=== PATIENT | male | born 1955 | race Hispanic/Latino ===

== ENCOUNTER 2023-07-31 08:27 | Emergency (ER) | payer OTHER ==
--- OUTSIDE RECORDS SUMMARY | 2023-07-31 08:32 | XMS REPORT | Continuity of Care Document ---
:[address] [facility] t Address [address] [place] [address] [place] [id number] Care Team Providers Name Role Phone Susan Cardoso Primary Care Physician Reginald Galindo Attending Clinician Modesto Agrawal MD Attending Clinician Payers Payer Name Policy Type Policy Number Effective Date Expiration Date S ource Problems Condition Condition Condition Status Onset Resolution Last Treating Co mments Source Name Details Category Date Date Treatment Clinician Date Traumatic Traumatic Disease Active [facility] incomplete incomplete 05-30 He alth tear of tear of 00:00: left left 00 rotator rotator cuff cuff Subacromia Subacromia Disease Active U T l l 05-30 Health impingemen impingemen 00:00: t of left t of left 00 shoulder shoulder Rotator Rotator Disease Active [facility] cuff cuff 04-30 Health tendonitis tendonitis 00:00: , left , left 00 Paresthesi Paresthes Problem Resolve 2021-12-08 Memoria a ia d 21:31:30 l (finding) (finding) [facility] Resolved Problem 12/08/2021 [facility] Diabetes Diabetes Problem Active 2023-07-11 Memoria mellitus mellitus 14:57:58 l (disorder) (disorder) Bandar rmann Active Problem 07/11/2023 [facility] Problem Active 2023-07-11 M emoria ve Hypertensi 14:57:58 l disorder, ve Ministerio systemic disorder, arterial systemic (disorder) arterial (disorder) Active Problem 07/11/2023 [facility] Hyperlipid Problem Active 2023-07-11 Boyd caruso Hyperlipid 14:57:58 l (disorder) emvan Rudy n (disorder) Active Problem 07/11/2023 [facility] Memory Memory Problem Active 2023-07-11 [facility] impairment impairment 14:57:58 l (finding) (finding) Herm dante Active Problem 07/11/2023 [facility] Peripheral Periphera Problem Active 2023-07-11 Memoria nerve l nerve 14:57:58 l disease disease [place] (disorder) (disorder) Active Problem 07/11/2023 [facility] Simple Simple Problem Active 2023-07-11 [facility] obesity obesity 14:57:58 l (disorder) (disorder) He rmann Active Problem 07/11/2023 [facility] Allergies, Adverse Reactions, Alerts Allergy Allergy Status Severity Reaction(s) Onset Inactive Treating Comm ents Source Name Type Date Date Clinician No Known No Known Active Memori a Medicati Medicati l on on Ministerio Allergie Allergie s s Cymbalta Cymbalta Active Memori a l Ministerio Social History Social Habit Start Date Stop Date Quantity Comments Source History of tobacco Cigarette Smoker [facility] use Exposure to 2022-05-20 2022-05-30 Not sure [facility] SARS-CoV-2 (event) 00:00:00 11:01:00 Alcohol intake 2022-05-30 2022-05-30 Current drinker of [facility] 00:00:00 00:00:00 alcohol (finding) Tobacco use and 2022-04-30 2022-04-30 User of smokeless [facility] exposure 00:00:00 00:00:00 tobacco Sex [birth year] [facility] 00:00:00 00:00:00 Smoking Status Start Date Stop Date Source Tobacco smoking status [facility] Occasional tobacco smoker 2022-04-30 00:00:00 [facility] Medications Ordered Filled Start Stop Current Ordering Indication Dosage Frequency Signature Comments Components Source Medication Medication Date Date Medication? Clinician (SIG) Name Name nortriptyli Yes = 2 cap, Me moria ne 10 mg 9-27 PO, l oral 18:19: Bedtime, # Ministerio capsule 00 180 unknown unit, 1 Refill(s), Pharmacy: [id number], 167.64, cm, 12/12/22 8:54:00 CDT, Height, 90.511, kg, 12/12/22 8:54:00 CDT, Weight nortriptyli Yes 20 mg = 2 M emoria ne 10 mg 3-07 cap, PO, l oral 16:30: Bedtime, # Ministerio capsule 00 180 cap, 1 Refill(s), Pharmacy: [facility] #[id number], 167.64, cm, 08/15/22 9:00:00 [facility] [place], Height, 89.545, kg, 08/15/22 9:00:00 [facility], Weight nortriptyli 2021-08 Yes 20 mg = 2 M emoria ne 10 mg 2-16 cap, PO, l oral 15:15: Bedtime, # [place] capsule 00 60 cap, 3 Refill(s), Pharmacy: [facility] #[id number], 167.64, cm, 08/15/22 9:00:00 [facility], Height, 89.545, kg, 08/15/22 9:00:00 [facility] MA[facility], Weight lidocaine 2021- No [id number] 1mL UT (Xylocaine) 04-30 Health 1 % 16:48: 16:48 injection 1 36 :00 mL triamcinolo 2021- No [id number] 40mg U T ne 04-30 Health acetonide 16:48: 16:48 (Kenalog-40 36 :00 ) injection 40 mg triamcinolo 2021- No [id number] 40mg 40 mg, UT ne 04-30 Intra-luna Health acetonide 16:48: 16:48 cular, (Kenalog-40 36 :00 Once PRN ) injection Procedure, 40 mg Starting on Thu04/30/22 at 1148, For 1 dose lidocaine 2021- No [id number] 1mL 1 mL, UT (Xylocaine) 04-30 Injection, H ealth 1 % 16:48: 16:48 Once PRN injection 1 36 :00 Procedure, mL Starting on Thu04/30/22 at 1148, For 1 dose meloxicam 2022-0 2023- No [id number] 15mg Take 1 UT (Mobic) 15 04-30 [id number] tablet (15 Health MG tablet 00:00: 04:59 mg total) 00 :00 by mouth 1 (one) time each day if needed for moderate pain. meloxicam 2022-0 3- No [id number] 15mg Take 1 UT (Mobic) 15 04-30 [id number] tablet (15 Health MG tablet 00:00: 04:59 mg total) 00 :00 by mouth 1 (one) time each day if needed for moderate pain. glimepiride 2022-0 Yes 4mg QD Take 4 mg U T (Amaryl) 4 7-30 by mouth 1 Hea lth MG tablet 00:00: (one) time 00 each day. glimepiride 2022-0 Yes 4mg QD Take 4 mg U T (Amaryl) 4 7-30 by mouth 1 Hea lth MG tablet 00:00: (one) time 00 each day. tamsulosin 2022-0 Yes .4mg Take 0.4 UT (Flomax) 7-19 mg by Health 0.4 MG 24 00:00: mouth 1 hr capsule 00 (one) time each day in the evening. tamsulosin 2022-0 Yes .4mg Take 0.4 UT (Flomax) 7-19 mg by Health 0.4 MG 24 00:00: mouth 1 hr capsule 00 (one) time each day in the evening. nortriptyli 2022-0 Yes 10mg Take 10 mg UT ne 6-16 by mouth Health (Pamelor) 00:00: every 10 MG 00 night. capsule nortriptyli 2022-0 Yes 10mg Take 10 mg UT ne 6-16 by mouth Health (Pamelor) 00:00: every 10 MG 00 night. capsule nortriptyli 2022-0 Yes 10 mg = 1 M emoria ne 10 mg 3-18 cap, PO, l oral 21:41: Bedtime, # [place] capsule 00 90 cap, 3 Refill(s), Pharmacy: [facility] #[id number], 167.64, cm, 10/24/21 8:27:00 [place] [place], Height, 87.869, kg, 10/24/21 8:27:00 D[place] MAID, Weight nortriptyli 2021-0 Yes 10 mg = 1 M emoria ne 10 mg 2-24 cap, PO, l oral 15:04: Bedtime, # Ministerio capsule 00 30 cap, 2 Refill(s), Pharmacy: [facility] #[id number], 167.64, cm, 10/24/21 8:27:00 [facility] MA[place], Height, 87.869, kg, 10/24/21 8:27:00 [place] [place], Weight duloxetine 0 No 30 mg = 1 Me moria 30 MG 2-08 cap, PO, l Enteric 15:56: Daily, # Rudy n Coated 00 30 cap, 3 Capsule Refill(s), [Cymbalta] Pharmacy: [facility] #[id number], 167.64, cm, 10/03/21 13:09:00 [place] [place], Height, 89.205, kg, 10/03/21 13:09:00 [facility] [place], Weight gabapentin 0 Yes 300 mg = 1 M emoria 300 MG Oral 2-03 cap, PO, l Capsule 19:30: Bedtime, # Herm dante 00 30 cap, 3 Refill(s), Pharmacy: [facility] #[id number], 167.64, cm, 10/03/21 13:09:00 [place] [place], Height, 89.205, kg, 10/03/21 13:09:00 [place] [place], Weight tamsulosin 0 Yes 0.4 mg = 1 M emoria 0.4 mg oral 2-03 cap, PO, l capsule 19:29: Daily, # Rudy n 00 30 cap, 0 Refill(s) ramipril 2020-08 Yes 10mg Q.5D Take 10 mg UT (Altace) 10 09-08 by mouth Heal th MG capsule 00:00: in the 00 morning and 10 mg before bedtime. ramipril 2020-08 Yes 10mg Q.5D Take 10 mg UT (Altace) 10 09-08 by mouth Heal th MG capsule 00:00: in the 00 morning and 10 mg before bedtime. glimepiride Yes 2 mg = 0.5 Memoria 4 mg oral 8-16 tab, PO, l tablet 19:17: Daily, 0 [place] 00 Refill(s) ramipril 10 Yes 10 mg = 1 M emoria mg oral 8-16 cap, PO, l capsule 19:17: Daily, # Rudy n 00 30 cap, 0 Refill(s) aspirin 81 Yes 81 mg = 1 Me moria mg tablet, 8-16 tab, PO, l enteric 19:17: Daily, # Rudy n coated 00 90 tab, 3 Refill(s) Vital Signs Vital Name Observation Time Observation Value Comments Source Body height 2022-05-30 16:52:00 167.6 cm [facility] Height 2023-07-08 14:32:00 5 [ft_i] [facility] Weight 2023-07-08 14:32:00 [facility] BMI Calculated 2023-07-08 14:32:00 Memori al [place] Systolic (mm Hg) 2023-07-08 14:32:00 Herminio rial [place] Diastolic (mm Hg) 2023-07-08 14:32:00 Mem orial Ministerio Heart Rate 2023-07-08 14:32:00 [facility] [place] Systolic (mm Hg) 2022-12-12 13:51:00 Herminio rial [place] Diastolic (mm Hg) 2022-12-12 13:51:00 Mem orial [place] Heart Rate 2022-12-12 13:51:00 [facility] Height 2022-12-12 13:51:00 5 [ft_i] [facility] Weight 2022-12-12 13:51:00 [facility] Ministerio BMI Calculated 2022-12-12 13:51:00 Memori al [place] Systolic (mm Hg) 2022-08-15 14:53:00 Herminio rial Ministerio Diastolic (mm Hg) 2022-08-15 14:53:00 Mem orial [place] Heart Rate 2022-08-15 14:53:00 [facility] Height 2022-08-15 14:53:00 5 [ft_i] [facility] Weight 2022-08-15 14:53:00 [facility] BMI Calculated 2022-08-15 14:53:00 Memori al Ministerio Systolic (mm Hg) 2021-10-24 14:12:00 Herminio rial [place] Diastolic (mm Hg) 2021-10-24 14:12:00 Mem orial Ministerio Heart Rate 2021-10-24 14:12:00 [facility] [place] Respitory Rate 2021-10-24 14:12:00 Memori al [place] Height 2021-10-24 14:12:00 167.64 cm Memorial [place] Weight 2021-10-24 14:12:00 Memorial Ministerio BMI Calculated 2021-10-24 14:12:00 Memori al Ministerio Systolic (mm Hg) 2021-10-03 19:09:00 Herminio rial [place] Diastolic (mm Hg) 2021-10-03 19:09:00 Mem orial Ministerio Heart Rate 2021-10-03 19:09:00 [facility] [place] Respitory Rate 2021-10-03 19:09:00 Memori al Ministerio Height 2021-10-03 19:09:00 167.64 cm Memorial [place] Weight 2021-10-03 19:09:00 Memorial Ministerio BMI Calculated 2021-10-03 19:09:00 Memori al Ministerio Systolic (mm Hg) 2018-10-08 14:49:00 Herminio rial Ministerio Diastolic (mm Hg) 2018-10-08 14:49:00 Mem orial Ministerio Heart Rate 2018-10-08 14:49:00 Memorial Ministerio Respitory Rate 2018-10-08 14:49:00 Memori al [place] Height 2018-10-08 14:49:00 172.72 cm Memorial Ministerio Weight 2018-10-08 14:49:00 [facility] [place] BMI Calculated 2018-10-08 14:49:00 Memori al [place] Height 2018-08-26 21:07:00 170.18 cm [facility] [place] Weight 2018-08-26 21:07:00 Memorial Ministerio BMI Calculated 2018-08-26 21:07:00 Memori al Ministerio Systolic (mm Hg) 2018-08-26 21:07:00 Herminio rial Ministerio Diastolic (mm Hg) 2018-08-26 21:07:00 Mem orial Ministerio Heart Rate 2018-08-26 21:07:00 [facility] Ministerio Procedures Procedure Date / Time Performed Performing Clinician Sourc e NH ARTHROCENTESIS ASP/INJ MAJOR 2022-04-30 16:48:36 Rossi Mccray julissa [facility] JOINT/BURSA W/OUT US Encounters Start End Encounter Admission Attending Care Care Encounter Source Date/Time Date/Time Type Type Clinicians Facility Department ID 2024-02-17 2024-02-17 Outpatient MHIE MHIE [id number] Memoria 09:00:00 09:00:00 11 deven Mandel 2023-07-08 2023-07-09 Outpatient MHIE MNA [id number] Memoria 15:00:00 05:59:59 Neurology 10 deven Mandel 2023-07-08 2023-07-08 Outpatient CHAIM GalindoMISCHER MHMISCHER [id number] 09:00:00 23:59:59 Reginald 10 Brannon 2023-07-08 2023-07-08 Outpatient MHIE MHIE [id number] Memoria 09:00:00 09:00:00 10 deven Mandel 2022-12-12 2022-12-13 Outpatient MHIE MNA [id number] Memoria 14:00:00 04:59:59 Neurology 09 deven Mandel 2022-12-12 2022-12-12 Outpatient CHAIM GalindoMISCHER MHMISCHER [id number] 09:00:00 23:59:59 Reginald 09 Brannon 2022-12-12 2022-12-12 Outpatient MHIE MHIE [id number] Memoria 09:00:00 09:00:00 09 deven Mandel 2022-08-15 2022-08-16 Outpatient MHIE MNA [id number] Memoria 15:00:00 05:59:59 Neurology 08 deven Mandel 2022-08-15 2022-08-15 Outpatient CHAIM GalindoMISCHER MHMISCHER [id number] 09:00:00 23:59:59 Reginald 08 Brannon 2022-08-15 2022-08-15 Outpatient MHIE MHIE [id number] Memoria 09:00:00 09:00:00 08 deven Mandel 2022-05-30 2022-05-30 Office SURYA Agrawal [id number] [place] 11:30:00 14:25:31 Visit [place] HENRY [id number] He alth [place] [id number] 2022-04-30 2022-04-30 Outpatient [facility] [id number] [place] 00:00:00 11:55:46 Health 2022-04-30 2022-04-30 Office SURYA Agrawal [id number] [place] 10:45:00 11:55:21 Visit [place] SUGAR [id number] He alth [place] [id number] 2021-12-06 2021-12-06 Ambulatory nullFlavo MNA [id number] Memoria 14:00:00 14:00:00 Pre-Reg r Neurology 07 l Mirtha Mandel 2021-12-06 2021-12-06 Outpatient MHIE MHEVENS [id number] Memoria 09:00:00 09:00:00 07 deven Ministerio 2021-12-06 2021-12-06 Outpatient KIKO GalindoMISCHER [id number] 09:00:00 09:00:00 Reginald 07 Brannon 2021-10-24 2021-10-25 Outpatient nullFlavo MNA [id number] Memoria 14:15:00 05:59:59 r Neurology 06 deven Mirtha Mandel 2021-10-24 2021-10-24 Outpatient KIKO GalindoSCHKILO [id number] 08:15:00 23:59:59 Reginald 06 Brannon 2021-10-24 2021-10-24 Outpatient MHIE CHAIMIE [id number] Memoria 08:15:00 08:15:00 06 deven Mandel 2021-10-03 2021-10-04 Outpatient nullFlavo MNA [id number] Memoria 19:00:00 05:59:59 r Neurology 05 deven Mandel 2021-10-03 2021-10-03 Outpatient KIKO Galindo MHMISCHER [id number] 13:00:00 23:59:59 Reginald 05 Brannon 2021-10-03 2021-10-03 Outpatient MHIE MHIE [id number] Memoria 13:00:00 13:00:00 05 deven Mandel 2019-07-08 2019-07-08 Ambulatory nullFlavo MNA [id number] Memoria 15:15:00 15:15:00 Pre-Reg r Neurology 04 deven Mandel 2019-07-08 2019-07-08 Outpatient MHIE MHIE [id number] Memoria 09:15:00 09:15:00 04 deven Mandel 2019-07-08 2019-07-08 Outpatient STUART GalindoSCHER MHMISCHER [id number] 09:15:00 09:15:00 Reginald 04 Brannon 2018-10-08 2018-10-09 Outpatient nullFlavo MNA [id number] Memoria 15:00:00 05:59:59 r Neurology 03 deven Mandel 2018-10-08 2018-10-08 Outpatient CHAIM GalindoMISCHER MHMISCHER [id number] 09:00:00 23:59:59 Reginald 03 Brannon 2018-10-08 2018-10-08 Outpatient MHIE MHIE [id number] Memoria 09:00:00 09:00:00 03 deven Ministerio 2018-08-26 2018-08-27 Outpatient nullFlavo MNA [id number] Memoria 21:00:00 05:59:59 r Neurology 02 deven [place] Ministerio 2018-08-26 2018-08-26 Outpatient STUART GalindoSCHER MHMISCHER [id number] 15:00:00 23:59:59 Reginald 02 Brannon 2018-08-26 2018-08-26 Outpatient MHIE MHIE [id number] Memoria 15:00:00 15:00:00 02 deven Mandel 2018-05-27 2018-05-27 Outpatient MHIE MHIE [id number] Memoria 15:00:00 15:00:00 01 deven Mandel 2018-04-15 2018-04-15 Outpatient MHIE MHIE [id number] Memoria 15:00:00 15:00:00 00 deven Mandel Results This patient has no known results.
--- NOTE | 2023-07-31 09:19 | RAD REPORT ---
EXAM DESCRIPTION: CT - Head Brain Wo Cont - 07/31/2023 9:08 am CLINICAL HISTORY: HTN, dizziness, headache COMPARISON: No comparisons TECHNIQUE: All CT scans are performed using dose optimization technique as appropriate and may inclu de automated exposure control or mA/KV adjustment according to patient size. FINDINGS: No intracranial hemorrhage, hydrocephalus or extra-axial fluid collection.No areas of brai n edema or evidence of midline shift. The paranasal sinuses and mastoids are clear. The calvarium is intact. IMPRESSION: No acute intracranial abnormality.
[2023-07-31 09:34] LABS: Hematocrit 45.4 % (39.6-49.0); MCV 87.7 fL (80-100); MPV 8.1 fL (7.6-11.3); Platelets 217 thou/uL (152-406); RBC Red Blood Cell Count 5.18 M/uL (4.33-5.43)
--- NOTE | 2023-07-31 09:35 | RAD REPORT ---
EXAM DESCRIPTION: RAD - Chest Single View - 07/31/2023 9:24 am CLINICAL HISTORY: HTN, dizzy COMPARISON: No comparisons FINDINGS: Lines: None. Lungs: No evidence of edema or pneumonia. Pleural: No significant pleural effusions or pneumothorax. Cardiac: The heart size is within normal limits. Mediastinum: Within normal limits. Bones: No acute fractures. Other: None IMPRESSION: No acute cardiopulmonary disease.
[2023-07-31 10:32] LABS: Albumin 3.6 g/dL (3.4-5.0); Bilirubin Direct 0.1 mg/dL (0-0.2); Bilirubin Indirect, Calculated 0.3 mg/dL (0.2-0.8); Bilirubin Total 0.4 mg/dL (0.2-1.0); Protein, Total 7.4 g/dL (6.4-8.2); Troponin High Sensitivity 7.4 pg/mL (<58.9)
--- NOTE | 2023-07-31 10:37 | ER ---
Nurse's Notes [facility] Name: Bradley Jc Age: 67 yrs Sex: Male : 1955 Arrival Date: 07/31/2023 Time: 08:27 Bed 4 Private MD: Diagnosis: Essential (primary) hypertension Presentation: 07/31 08:41 Chief complaint: Patient states: High blood pressure, hx of HTN. DAS and dizziness jl7 yesterday, now resolved. Coronavirus screen: At this time, the client does not indicate any symptoms associated with coronavirus-19. Ebola Screen: No symptoms or risks identified at this time. Initial Sepsis Screen: Does the patient meet any 2 criteria? No. Patient's initial sepsis screen is negative. Does the patient have a suspected source of infection? No. Patient's initial sepsis screen is negative. Risk Assessment: Do you want to hurt yourself or someone else? Patient reports no desire to harm self or others. 08:41 Method Of Arrival: Ambulatory jl7 08:41 Acuity: CATALINO 3 jl7 09:50 Onset of symptoms was July 31, 2023. ph Triage Assessment: 08:45 General: Appears in no apparent distress. uncomfortable, Behavior is calm, cooperative, jl7 appropriate for age. Pain: Denies pain. Historical: - Allergies: 08:45 No Known Allergies; jl7 - Home Meds: 08:45 ramipril Oral [Active]; Glimepiride Oral [Active]; Nortriptyline Oral for diabetic jl7 peripheral neuropathy [Active]; - PMHx: 08:45 Hypertensive disorder; Diabetes mellitus; Neuropathy; jl7 - Immunization history:: Adult Immunizations up to date. - Social history:: Smoking status: Patient denies any tobacco usage or history of. - Family history:: not pertinent. - Hospitalizations: : No recent hospitalization is reported. Screenin:49 [facility] ED Fall Risk Assessment (Adult) History of falling in the last 3 months, ph including since admission No falls in past 3 months (0 pts) Confusion or Disorientation No (0 pts) Intoxicated or Sedated No (0 pts) Impaired Gait No (0 pts) Mobility Assist Device Used No (0 pt) Altered Elimination No (0 pt) Score/Fall Risk Level 0 - 2 = Low Risk Oriented to surroundings, Maintained a safe environment, Provided non-skid footwear, Hourly rounding (assess needs \T\ fall precautionary measures) done. Abuse screen: Denies threats or abuse. Denies injuries from another. Nutritional screening: No deficits noted. Tuberculosis screening: No symptoms or risk factors identified. Assessment: 09:51 General: Appears in no apparent distress. Behavior is calm, cooperative. Pain: Denies ph pain. Neuro: Level of Consciousness is awake, alert, obeys commands, Oriented to person, place, time, situation. Cardiovascular: Denies chest pain, Capillary refill < 3 seconds in bilateral fingers Patient's skin is warm and dry. Respiratory: Airway is patent Respiratory effort is even, unlabored. Derm: Skin is pink, warm \T\ dry. Musculoskeletal: Circulation, motion, and sensation intact. Range of motion: intact in all extremities. 10:48 Reassessment: Patient appears in no apparent distress at this time. Patient and/or iw family updated on plan of care and expected duration. Pain level reassessed. Patient is alert, oriented x 3, equal unlabored respirations, skin warm/dry/pink. Patient states feeling better. Patient states symptoms have improved. Vital Signs: 08:41 BP 162 / 103; Pulse 93; Resp 17; Pulse Ox 99% ; Weight 90.72 kg; Height 5 ft. 6 in. ; jl7 Pain 0/10; 09:49 BP 142 / 81; Pulse 81; Resp 18; Pulse Ox 99% on R/A; ph 10:48 BP 140 / 94; Pulse 60; Resp 16; Pulse Ox 98% on R/A; iw 08:41 Body Mass Index 32.28 (90.72 kg, 167.64 cm) jl7 08:41 Pain Scale: Adult jl7 ED Course: 08:31 Patient arrived in ED. mr 08:31 Hugh Holbrook MD is Attending Physician. rn 08:45 Triage completed. jl7 08:45 Arm band placed on right wrist. jl7 09:10 CT Head Brain wo Cont In Process Unspecified. EDMS 09:25 XRAY Chest (1 view) In Process Unspecified. EDMS 09:49 Patient has correct armband on for positive identification. Bed in low position. Call ph light in reach. Side rails up X 1. classroom monitor on. Pulse ox on. NIBP on. 10:22 Amber Ken, RN is Primary Nurse. iw 10:48 No provider procedures requiring assistance completed. IV discontinued, intact, iw bleeding controlled, No redness/swelling at site. Pressure dressing applied. 10:49 Provided Education on: . iw Administered Medications: No medications were administered Medication: 09:49 VIS not applicable for this client. ph Outcome: 10:37 Discharge ordered by . rn 10:48 Discharged to home ambulatory, with family, iw 10:48 Condition: good 10:48 Discharge instructions given to patient, family, Instructed on discharge instructions, follow up and referral plans. Demonstrated understanding of instructions, follow-up care, 10:49 Patient left the ED. iw Signatures: Dispatcher [employer] EDMS Carol Simmons, Reg Reg mr Amber Ken, RN RN iw Hugh Holbrook MD MD rn Hall, Patricia, RN RN Wilton Valencia RN RN jl7
--- NOTE | 2023-07-31 10:37 | EDPHYS ---
Physician Documentation [facility] Name: Bradley Jc Age: 67 yrs Sex: Male : 1955 Arrival Date: 07/31/2023 Time: 08:27 Bed 4 Private MD: ED Physician Hugh Holbrook HPI: 07/31 08:52 This 67 yrs old Male presents to ER via Ambulatory with complaints of High rn Blood Pressure. 08:52 The patient has elevated blood pressure and discovered this at home. Onset: The rn symptoms/episode began/occurred at an unknown time. Severity of symptoms: At its worst the blood pressure was moderate, in the emergency department the blood pressure is unchanged. The patient has experienced similar episodes in the past. Patient reports high blood pressure, unknown onset, takes medication, has been prescribed to take twice daily but has only been taking once daily for a prolonged period of time. Has noticed blood pressure has been 180s systolic and 100 diastolic. Reports had headache and dizziness yesterday but headache and dizziness have resolved since then. No focal neurological deficit. No chest pain or shortness of breath. Does not take any other medication. Took his blood pressure medication today at 5 in the morning. This will be the first day he takes it twice daily. Currently denies any dizziness or headache. States feels fine. No difficulty walking. No vision changes. No speech problems.. Historical: - Allergies: 08:45 No Known Allergies; jl7 - Home Meds: 08:45 ramipril Oral [Active]; Glimepiride Oral [Active]; Nortriptyline Oral for diabetic jl7 peripheral neuropathy [Active]; - PMHx: 08:45 Hypertensive disorder; Diabetes mellitus; Neuropathy; jl7 - Immunization history:: Adult Immunizations up to date. - Social history:: Smoking status: Patient denies any tobacco usage or history of. - Family history:: not pertinent. - Hospitalizations: : No recent hospitalization is reported. ROS: 08:52 Constitutional: Negative for fever, chills, and weight loss, Eyes: Negative for injury, rn pain, redness, and discharge, Neck: Negative for injury, pain, and swelling, Cardiovascular: Negative for chest pain, palpitations, and edema, Respiratory: Negative for shortness of breath, cough, wheezing, and pleuritic chest pain, Abdomen/GI: Negative for abdominal pain, nausea, vomiting, diarrhea, and constipation, Back: Negative for injury and pain, MS/Extremity: Negative for injury and deformity, Skin: Negative for injury, rash, and discoloration, Neuro: Negative for headache, weakness, numbness, tingling, and seizure, Exam: 08:52 Constitutional: This is a well developed, well nourished patient who is awake, alert, rn and in no acute distress. Ambulatory to room without difficulty or requiring assistance Head/Face: Normocephalic, atraumatic. Eyes: Pupils equal round and reactive to light, extra-ocular motions intact. Neck: No neck stiffness or meningismus Cardiovascular: Regular rate and rhythm. No pulse deficits. No murmur. Respiratory: Clear bilateral breath sounds. No increased work of breathing, no retractions or nasal flaring. Abdomen/GI: Soft, non-tender Skin: Warm, dry MS/ Extremity: Pulses equal, no cyanosis. Neurovascular intact. Full, normal range of motion. Equal circumference. Neuro: Awake and alert, GCS 15, oriented to person, place, time, and situation. Cranial nerves II-XII grossly intact. Motor strength 5/5 in all extremities. Sensory grossly intact. Cerebellar exam normal. Normal gait. 10:35 ECG was reviewed by the Attending Physician. rn Vital Signs: 08:41 BP 162 / 103; Pulse 93; Resp 17; Pulse Ox 99% ; Weight 90.72 kg; Height 5 ft. 6 in. ; jl7 Pain 0/10; 09:49 BP 142 / 81; Pulse 81; Resp 18; Pulse Ox 99% on R/A; ph 10:48 BP 140 / 94; Pulse 60; Resp 16; Pulse Ox 98% on R/A; iw 08:41 Body Mass Index 32.28 (90.72 kg, 167.64 cm) jl7 08:41 Pain Scale: Adult jl7 MDM: 08:31 Patient medically screened. rn 10:35 Differential diagnosis: hypertensive crisis, Malignant HTN, intracerebral hemorrhage, rn Asymptomatic hypertension, medication noncompliance. Data reviewed: vital signs, nurses notes, lab test result(s), EKG, radiologic studies, CT scan, plain films, and as a result, I will discharge patient. Independent interpretation of the following test(s) in the Emergency Department EKG: See my EKG interpretation above X-Ray: My interpretation is Chest x-ray images negative for cardiomegaly or pneumothorax per my interpretation. Care significantly affected by the following chronic conditions: Diabetes, Hypertension. Counseling: I had a detailed discussion with the patient and/or guardian regarding the historical points, exam findings, and any diagnostic results supporting the discharge/admit diagnosis, lab results, radiology results, the need for outpatient follow up, to return to the emergency department if symptoms worsen or persist or if there are any questions or concerns that arise at home. Special discussion: I discussed with the patient/guardian in detail that at this point there is no indication for admission to the hospital. It is understood, however, that if the symptoms persist or worsen the patient needs to return immediately for re-evaluation. Based on the history and exam findings, there is no indication for further emergent testing or inpatient evaluation. I discussed with the patient/guardian the need to see the vehicle window tinter for further evaluation of the symptoms. I discussed with the patient/guardian the need to see the primary care provider for further evaluation of the symptoms. ED course: No acute findings to indicate hypertensive emergency or damage. CT head negative. EKG without ischemia. Patient asymptomatic and blood pressure improved to 142/81 without intervention. Recommend taking medication as prescribed, taking a blood pressure diary and taking to PCP for further recommendations. I have personally reviewed all of the results, including but not limited to blood tests and imaging deemed necessary to safely discharge this patient at this time. All results given to and printed out for patient. I personally went over all the results with the patient and answered all questions. Patient will follow-up with PCP and or specialist as discussed. Return precautions given and understood.. 07/31 08:52 Order name: Basic Metabolic Panel; Complete Time: 10:33 rn 07/31 08:52 Order name: CBC with Diff; Complete Time: 10: rn 07/31 08:52 Order name: LFT's; Complete Time: 10:33 rn 07/31 08:52 Order name: NT PRO-BNP; Complete Time: 10:33 rn 07/31 08:52 Order name: Troponin HS; Complete Time: 10:33 rn 07/31 08:52 Order name: CT Head Brain wo Cont; Complete Time: 09:35 rn 07/31 08:52 Order name: XRAY Chest (1 view); Complete Time: 09:35 rn 07/31 08:52 Order name: EKG; Complete Time: 08:52 rn 07/31 08:52 Order name: Cardiac monitoring; Complete Time: 09:28 rn 07/31 08:52 Order name: EKG - Nurse/Tech; Complete Time: 09:28 rn 07/31 08:52 Order name: IV Saline Lock; Complete Time: 09:45 rn 07/31 08:52 Order name: Labs collected and sent; Complete Time: :45 rn 07/31 08:52 Order name: O2 Per Protocol; Complete Time: :58 rn 07/31 08:52 Order name: O2 Sat Monitoring; Complete Time: :58 rn EC:35 Rate is 81 beats/min. Rhythm is regular. QRS [place] is Normal. LA interval is normal. QRS rn interval is normal. QT interval is normal. No Q waves. T waves are Normal. No ST changes noted. Clinical impression: NSR w/ Non-specific ST/T Changes. Interpreted by me. Reviewed by me. Administered Medications: No medications were administered Disposition Summary: 07/31/23 10:37 Discharge Ordered Notes: Location: Home rn Problem: an ongoing problem rn Symptoms: have improved rn Condition: Stable rn Diagnosis - Essential (primary) hypertension rn Followup: rn - With: Private Physician - When: As needed - Reason: Recheck today's complaints, Re-evaluation by your physician Discharge Instructions: - Discharge Summary Sheet rn - Hypertension, Adult rn - Heart Disease intelligence intern - How to Take Your Blood Pressure, [id number] rn - Managing Your Hypertension rn Forms: - Medication Reconciliation Form rn - Thank You Letter rn - Antibiotic brass burnisher - Prescription Opioid Use rn - Patient Portal Instructions rn - Leadership Thank You Letter rn Signatures: Dispatcher [employer] Hugh Botello MD MD rn Leal, Jahala RN RN jl7
[2023-07-31 10:56] VITALS: BP 140/94; O2SAT 98
--- NOTE | 2023-08-04 13:45 | EKG ---
Test Date: 2023-07-31 Test Time: 09:24:26 Program Strategist: IAN MEASUREMENT RESULTS: Intervals: Rate: 81 WY: 150 QRSD: 156 QT: 412 QTc: 478 [place]: P: 49 W[place]: 150 QRS: 16 T: 21 INTERPRETIVE STATEMENTS: Normal sinus rhythm Right bundle branch block Abnormal ECG No previous ECG available for comparison Electronically Signed On 08-04-23 13:32:02 CAREER CONSULTANT by Chema Mackay
== END 2023-07-31 10:49 | disposition home or self-care (01) ==
LOC: ER 08:27
DX: I10 Essential (primary) hypertension (principal); E11.9 Type 2 diabetes mellitus without complications
CPT/HCPCS: 36415; 70450; 71045; 80048; 80076; 83880; 84484; 85025; 93005; 99284

== ENCOUNTER 2024-04-22 10:41 | Emergency (ER) | payer OTHER ==
[2024-04-22] MEDS ORDERED: NA CHLORIDE 0.9% 1,000 ML ONE (11:22)
[2024-04-22 11:42] LABS: Absolute Eosinophils 0.1 K/uL (0-0.5); Absolute Lymphocytes (CBC) 0.9 K/uL (0.7-4.9); Absolute Monocytes 0.2 K/uL (0.1-1.3); Absolute Neutrophil 3.3 K/uL (1.8-8.0); Basophils % 1.1 % (0-1.3); Eosinophils % 1.8 % (0-4.4); Hematocrit 44.1 % (39.6-49.0); Hemoglobin 14.6 g/dL (13.6-17.9); Lymphocytes % 19.8 % (15.3-44.8); MCH 29.7 pg (27.0-35.0); MCV 89.8 fL (80-100); MPV 8.9 fL (7.6-11.3); Monocytes % 4.8 % (3.3-12.3); Neutrophils % 72.5 % (41.7-73.7); Platelets 210 thou/uL (152-406); RBC Red Blood Cell Count 4.91 M/uL (4.33-5.43); Red Cell Distribution Width 14.9 % (12.1-15.2)
[2024-04-22 12:00] LABS: ALT/SGPT 31 U/L (16-61); AST/SGOT 12 U/L (15-37); Albumin 3.7 g/dL (3.4-5.0); Alkaline Phosphatase 69 U/L (45-117); Anion Gap 4.7 mEq/L (5.0-15.0); BUN Blood Urea Nitrogen 10 mg/dL (7-18); Bicarbonate 32 mEq/L (21-32); Bilirubin Total 0.5 mg/dL (0.2-1.0); Globulin 3.7 g/dL (2.3-3.5); Glomerular Filtration Rate 93 ml/min (=/>90); Glucose Level 99 mg/dL (74-106); Magnesium 2.1 mg/dL (1.6-2.4); Potassium 3.7 mEq/L (3.5-5.1); Protein, Total 7.4 g/dL (6.4-8.2); Sodium Level 139 mEq/L (136-145)
[2024-04-22 12:01] LABS: Bilirubin Direct < 0.2 mg/dL (0-0.2); Bilirubin Indirect, Calculated 0.3 mg/dL (0.2-0.8)
--- NOTE | 2024-04-22 13:01 | EDPHYS ---
Physician Documentation [facility] Name: Bradley Jc Age: 68 yrs Sex: Male : 1955 Arrival Date: 04/22/2024 Time: 10:41 Bed 14 Private MD: ED Physician Jeffrey Yuan HPI: 04/22 11:24 This 68 yrs old Male presents to ER via Unassigned with complaints of rt Dizziness. 11:24 Patient presents to the ED with dizziness starting today. Was worse when he stood up. rt Described as lightheadedness. Patient states that the symptoms have resolved upon arrival to the ED, denies any ongoing dizziness. Denies chest pain, shortness of breath. states that the patient has had increased urination over the night. Denies other acute complaints at this time, symptoms are moderate severity, no other aggravating alleviating factors.. Historical: - Allergies: 11:31 No Known Allergies; rs5 - PMHx: 11:31 diabetes mellitus; Hypertensive disorder; neuropathy; rs5 - PSHx: 11:31 None; rs5 - Immunization history:: Adult Immunizations up to date. - Infectious Disease History:: Denies. - Family history:: not pertinent. - Social history:: Smoking status: Patient denies any tobacco usage or history of. ROS: 11:24 Constitutional: Negative for fever, chills, and weight loss, Cardiovascular: Negative rt for chest pain, palpitations, and edema, Respiratory: Negative for shortness of breath, cough, wheezing, and pleuritic chest pain, Abdomen/GI: Negative for abdominal pain, nausea, vomiting, diarrhea, and constipation, MS/Extremity: Negative for injury and deformity, Skin: Negative for injury, rash, and discoloration, 11:24 Neuro: Positive for dizziness, Exam: 11:24 Constitutional: This is a well developed, well nourished patient who is awake, alert, rt and in no acute distress. Head/Face: Normocephalic, atraumatic. Chest/axilla: Normal chest wall appearance and motion. Nontender with no deformity. No lesions are appreciated. Cardiovascular: Regular rate and rhythm with a normal S1 and S2. No gallops, murmurs, or rubs. Normal PMI, no JVD. No pulse deficits. Respiratory: Lungs have equal breath sounds bilaterally, clear to auscultation and percussion. No rales, rhonchi or wheezes noted. No increased work of breathing, no retractions or nasal flaring. Abdomen/GI: Soft, non-tender, with normal bowel sounds. No distension or tympany. No guarding or rebound. No evidence of tenderness throughout. Skin: Warm, dry with normal turgor. Normal color with no rashes, no lesions, and no evidence of cellulitis. MS/ Extremity: Pulses equal, no cyanosis. Neurovascular intact. Full, normal range of motion. Neuro: Awake and alert, GCS 15, oriented to person, place, time, and situation. Cranial nerves II-XII grossly intact. Motor strength 5/5 in all extremities. Sensory grossly intact. Cerebellar exam normal. Normal gait. 11:24 ECG was reviewed by the Attending Physician. Vital Signs: 11:00 BP 141 / 74; Pulse 77; Resp 17; Temp 97.8(O); Pulse Ox 98% ; rs5 11:09 BP 130 / 80; Pulse 74; Resp 17; Pulse Ox 98% on R/A; rs5 13:00 BP 135 / 77; Pulse 70; Resp 17; Pulse Ox 98% on R/A; rs5 MDM: 11:03 Patient medically screened. rt 14:58 Differential diagnosis: Near syncope, dehydration, dysrhythmia, electro disturbance, rt anemia. Data reviewed: vital signs, nurses notes, lab test result(s), EKG. Consideration of Admission/Observation Escalation of care including admission/observation considered. I considered the following discharge prescriptions or medication management in the emergency department Medications were administered in the Emergency Department. See MAR. Test considered but Not performed: CT: Denies headache, no head trauma, low suspicion for CVA, intracranial hemorrhage, CT scan of the head is not indicated.. Care significantly affected by the following chronic conditions: Diabetes. Response to treatment: the patient's symptoms have markedly improved after treatment. 04/22 11:12 Order name: Basic Metabolic Panel; Complete Time: 12:02 rt 04/22 11:12 Order name: CBC with Diff; Complete Time: 12:02 rt 04/22 11:12 Order name: LFT's; Complete Time: 12:02 rt 04/22 11:12 Order name: Magnesium; Complete Time: 12: rt 04/22 11:12 Order name: Troponin HS; Complete Time: 12:02 rt 04/22 11:12 Order name: Cardiac monitoring; Complete Time: rt 04/22 11:12 Order name: EKG - Nurse/Tech; Complete Time: rt 04/22 11:12 Order name: IV Saline Lock; Complete Time: rt 04/22 11:12 Order name: Labs collected and sent; Complete Time: rt 04/22 11:12 Order name: O2 Per Protocol; Complete Time: rt 04/22 11:12 Order name: O2 Sat Monitoring; Complete Time: rt EC:24 Rate is 54 beats/min. Rhythm is regular, Sinus bradycardia with Right bundle branch rt block. QRS [place] is Normal. [place] interval is normal. QRS interval is normal. QT interval is normal. No Q waves. No ST changes noted. Administered Medications: Drug: NS 0.9% IV 1000 ml IV at 1 bolus Per protocol; 1000 mL bolus Route: IV; Rate: 1 rs5 bolus; Site: right antecubital; : Follow up: IV Status: Completed infusion rs5 Disposition Summary: 04/22/24 13:00 Discharge Ordered Notes: Location: Home rt Problem: new rt Symptoms: are resolved rt Condition: Stable rt Diagnosis - Syncope Near rt Followup: rt - With: Private Physician - When: 2 - 3 days - Reason: Discharge Instructions: - Discharge Summary Sheet rt - Near-Syncope rt Forms: - Medication Reconciliation Form rt - Antibiotic Education rt - Prescription Opioid Use rt - Patient Portal Instructions rt - Leadership Thank You Letter rt Signatures: Dispatcher [employer] Jeffrey Carter MD MD rt Kevin Reyez, RN RN rs5
--- NOTE | 2024-04-22 13:01 | ER ---
Nurse's Notes [facility] Name: Bradley Jc Age: 68 yrs Sex: Male : 1955 Arrival Date: 04/22/2024 Time: 10:41 Bed 14 Private MD: Diagnosis: Syncope Near Presentation: 04/22 11:00 Chief complaint: Patient states: Dizziness started this morning. rs5 11:00 Coronavirus screen: At this time, the client does not indicate any symptoms associated rs5 with coronavirus-19. Ebola Screen: No symptoms or risks identified at this time. Initial Sepsis Screen: Does the patient meet any 2 criteria? No. Patient's initial sepsis screen is negative. Does the patient have a suspected source of infection? No. Patient's initial sepsis screen is negative. Risk Assessment: Do you want to hurt yourself or someone else? Patient reports no desire to harm self or others. Onset of symptoms was April 22, 2024. 11:00 Method Of Arrival: Ambulatory rs5 11:00 Acuity: CATALINO 3 rs5 Triage Assessment: 11:10 General: Appears in no apparent distress. uncomfortable, Behavior is calm, cooperative. rs5 Pain: Denies pain. Historical: - Allergies: 11:31 No Known Allergies; rs5 - PMHx: 11:31 diabetes mellitus; Hypertensive disorder; neuropathy; rs5 - PSHx: 11:31 None; rs5 - Immunization history:: Adult Immunizations up to date. - Infectious Disease History:: Denies. - Family history:: not pertinent. - Social history:: Smoking status: Patient denies any tobacco usage or history of. Screenin:01 [facility] ED Fall Risk Assessment (Adult) History of falling in the last 3 months, rs5 including since admission No falls in past 3 months (0 pts) Confusion or Disorientation No (0 pts) Intoxicated or Sedated No (0 pts) Impaired Gait No (0 pts) Mobility Assist Device Used No (0 pt) Altered Elimination No (0 pt) Score/Fall Risk Level 0 - 2 = Low Risk Oriented to surroundings, Maintained a safe environment. Abuse screen: Denies threats or abuse. Nutritional screening: No deficits noted. Tuberculosis screening: No symptoms or risk factors identified. Assessment: 11:10 General: Appears in no apparent distress. uncomfortable, Behavior is calm, cooperative. rs5 Pain: Denies pain. Neuro: Level of Consciousness is awake, alert, obeys commands, Oriented to person, place, time, situation, Reports dizziness. Cardiovascular: Patient's skin is warm and dry. Respiratory: Airway is patent Respiratory effort is even, unlabored, Respiratory pattern is regular, symmetrical. GI: Abdomen is round non-distended, Abd is soft and non tender X 4 quads. : No signs and/or symptoms were reported regarding the genitourinary system. EENT: No signs and/or symptoms were reported regarding the EENT system. Derm: Skin is intact, Skin is pink, warm \T\ dry. Musculoskeletal: Range of motion: intact in all extremities. 12:18 Reassessment: Patient and/or family updated on plan of care and expected duration. Pain rs5 level reassessed. Patient is alert, oriented x 3, equal unlabored respirations, skin warm/dry/pink. 13:22 Reassessment: Patient and/or family updated on plan of care and expected duration. Pain rs5 level reassessed. Patient is alert, oriented x 3, equal unlabored respirations, skin warm/dry/pink. Vital Signs: 11:00 BP 141 / 74; Pulse 77; Resp 17; Temp 97.8(O); Pulse Ox 98% ; rs5 11:09 BP 130 / 80; Pulse 74; Resp 17; Pulse Ox 98% on R/A; rs5 13:00 BP 135 / 77; Pulse 70; Resp 17; Pulse Ox 98% on R/A; rs5 ED Course: 10:43 Patient arrived in ED. mr 10:45 Jeffrey Yuan MD is Attending Physician. rt 11:01 No provider procedures requiring assistance completed. rs5 11:01 Patient has correct armband on for positive identification. Placed in gown. Bed in low rs5 position. Call light in reach. Side rails up X2. 11:10 Arm band placed on right wrist. rs5 11:22 Kevin Reyez, LILIANE is Primary Nurse. rs5 11:31 Triage completed. rs5 11:39 Inserted saline lock: 20 gauge in right antecubital area, using aseptic technique. oh1 13:25 IV discontinued, intact, bleeding controlled, No redness/swelling at site. Pressure rs5 dressing applied. Administered Medications: 11:29 Drug: NS 0.9% IV 1000 ml IV at 1 bolus Per protocol; 1000 mL bolus Route: IV; Rate: 1 rs5 bolus; Site: right antecubital; 12:22 Follow up: IV Status: Completed infusion rs5 Medication: 11:19 VIS not applicable for this client. rs5 Outcome: 13:00 Discharge ordered by . rt 13:25 Discharged to home ambulatory, rs5 13:25 Condition: stable 13:25 Discharge instructions given to patient, family, Instructed on discharge instructions, follow up and referral plans. Demonstrated understanding of instructions, follow-up care, 13:27 Patient left the ED. rs5 Signatures: Carol Simmons, Reg Reg Jeffrey Lombardi MD MD rt Kevin Reyez RN RN rs5 Nilda Manzo oh1
--- NOTE | 2024-04-22 13:26 | EKG ---
Test Date: 2024-04-22 Test Time: 11:20:06 Systems Management Consultant: MUSTAPHA MEASUREMENT RESULTS: Intervals: Rate: 54 W[place]: 164 QRSD: 154 QT: 446 QTc: 422 [place]: P: 46 [place]: 164 QRS: 6 T: 20 INTERPRETIVE STATEMENTS: Sinus bradycardia with sinus arrhythmia Right bundle branch block Abnormal ECG Compared to ECG 07/31/2023 09:24:26 Sinus rhythm no longer present Electronically Signed On 04-22-24 13:25:50 CDT by Fantasma Flores
[2024-04-22 13:37] VITALS: BP 141/74; TEMP 97.8; O2SAT 98
== END 2024-04-22 13:27 | disposition home or self-care (01) ==
LOC: ER 10:41
DX: R55 Syncope and collapse (principal); E11.9 Type 2 diabetes mellitus without complications; I10 Essential (primary) hypertension
CPT/HCPCS: 93005; 85025; 80048; 36415; 83735; 80076; 84484; 96360; 99284; J7030